=== PATIENT | female | born 1980 | race Caucasian/White ===

== ENCOUNTER 2016-05-03 07:41 | Emergency (ER) | payer OTHER ==
[~2016-05-03 07:41] MED LIST: ACULAR LS5 ML OP; ALBUTEROL17 GM NEB; BENTYL10 M1 PO; BIRTH CONTROL PILL PO; FLEXERIL10 MG PO; FLUCONAZOLE150 M1 PO; KEFLEX500 M1 PO; MINASTRIN 24 F1 EACH PO; MULTI VITAMIN1 EACH; NAPROXEN PO; NO MEDICATIONS; PERCOCET5/325 PO; PHENERGAN PO; PHENERGAN25 MG PO; POLYTRIM EYE DR10 ML OP; PROMETHAZINE HC25 MG PO; TYLENOL325 M1 PO; VISTARIL PO; VOLTAREN75 MG PO
[2016-06-17] MEDS ORDERED: LOESTRIN 21 1-1 EACH (20:55)
== END 2016-05-03 08:07 | disposition home or self-care (01) ==
LOC: SED 07:41
DX: T15.12XA Foreign body in conjunctival sac, left eye, initial encounter (principal); F17.200 Nicotine dependence, unspecified, uncomplicated; Z87.442 Personal history of urinary calculi; W45.8XXA Other foreign body or object entering through skin, initial encounter
CPT/HCPCS: 99283

== ENCOUNTER 2016-06-17 21:26 | Emergency (ER) | payer OTHER ==
--- NOTE | ~2016-06-17 | CT4 ---
[facility] A Service of [facility] RADIOLOGY TEXT RESULTS PATIENT: NIXON HERR LOCATION: SED : 80 UNIT #: [id number] AGE: [address]: Angel De Anda MD SEX: F ORDER DR: [id number] [address] [address] [id number] MR#: [id number] Acc #: [id number] NAME: NIXON HERR : 1980 SEX: F STUDY DATE/TIME: 06/17/2016 21:34 UNIT: SED ROOM: STUDY DESCRIPTION: CT Abd and Pelv Wo Cont Attending Physician: Angel De Anda M.D. Ordering Physician: Angel De Anda M.D. Primary Care Physician: Madonna Francis M.D. MEDICAL IMAGING REPORT This report is preliminary unless electronic signature is present. EXAM CT scan of the abdomen and pelvis without contrast, 06/17/2016 HISTORY Right flank pain for 1 day, urinary tract infection. History of kidney stones. Evaluate for obstructing renal calculus. TECHNIQUE Spiral CT was performed through the abdomen and pelvis without oral or intravenous contrast administration using renal stone protocol. This CT exam was performed with one or more of the following radiation dose reduction techniques: automatic exposure control, adjustment of mA and/or kV according to patient size, and iterative reconstruction. FINDINGS ABDOMEN: There is no obstructing renal or ureteral calculus. Tiny nonobstructing right renal stones are noted. The left kidney is normal. The visualized liver, spleen, pancreas, gallbladder and biliary tree and adrenal glands are normal. PELVIS FINDINGS: The gut, mesenteric and clarence structures are normal. There is no free fluid in the abdomen or pelvis. Intrauterine contraceptive device is noted. Images of the lung bases demonstrate a 1.3 cm nodule in the anterior right lower lobe. Followup chest CT in 6 months is recommended to assess the nodule for stability. IMPRESSION 1. No obstructing renal or ureteral calculus. 2. Multiple nonobstructing right renal stones. 3. A 1.3 cm nodule in the anterior lateral right lower lobe. Followup chest CT is recommended in 6 months. [facility] A Service of [facility] RADIOLOGY TEXT RESULTS PATIENT: NIXON HERR LOCATION: [facility] [place] : [birth year] UNIT #: [id number] AGE: [address]: Angel De Anda MD SEX: F ORDER DR: Dictated by... Jeff Del Toro M.D. THIS IS AN ELECTRONICALLY VERIFIED REPORT Jeff Del Toro M.D. at 06/18/2016 3:40 PM KRT/marcello TD: 06/18/2016 05:03 JOB #: [id number] MEDICAL IMAGING REPORT Page 1 of 1
[2016-06-17 21:23] LABS: URINE SOURCE CLEAN CATCH
[2016-06-17 21:25] LABS: URINE APPEARANCE CLEAR; URINE BILIRUBIN NEG (NEG); URINE BLOOD NEG (NEG); URINE COLOR YELLOW; URINE GLUCOSE NEG (NORM); URINE KETONE NEG (NEG); URINE LEUKOCYTE ESTERASE NEG (NEG); URINE NITRATE NEG (NEG); URINE PROTEIN NEG (NEG); URINE SPECIFIC GRAVITY <=1.005 (1.003-1.035); URINE UROBILINOGEN 0.2 MG/DL (NORM)
[~2016-06-17 21:26] MED LIST changes: +LOESTRIN 21 1-1 EACH
[2016-06-17 21:27] LABS: MICRO INDICATED? NO
== END 2016-06-17 23:13 | disposition home or self-care (01) ==
LOC: SED 21:26
PROVIDERS: Emergency Medicine
DX: R10.9 Unspecified abdominal pain (principal); R91.1 Solitary pulmonary nodule; F17.210 Nicotine dependence, cigarettes, uncomplicated
CPT/HCPCS: 74176; 81003; 99284